=== PATIENT | male | born 1955 | race Caucasian/White ===

== ENCOUNTER → 2017-04-05 | Outpatient (CLI) | payer OTHER | LOC: COL.LAB 10:52 | DX: Z01.812 Encounter for preprocedural laboratory examination (principal) ==

== ENCOUNTER → 2019-05-26 | Outpatient (CLI) | payer OTHER | LOC: COL.RAD 08:18 | DX: M25.552 Pain in left hip (principal) | CPT/HCPCS: J3301; Q9967 ==